=== PATIENT | female | born 1990 | race Caucasian/White ===

== ENCOUNTER 2018-12-05 12:17 | Emergency (ER) | payer MEDICAID ==
[~2018-12-05] VITALS: Ht 154.9 cm; Wt 85.7 kg
[2018-12-05 12:17] VITALS: BP_SYST 156
[2018-12-05] MEDS ORDERED: KETOROLAC TROMETHAMINE 60 MG/2 ML VIAL IM ONE (12:45)
[2018-12-05 13:35] VITALS: BP_SYST 156
== END 2018-12-05 13:35 | disposition home or self-care (01) ==
LOC: SED 12:17
DX: R51 Headache (principal); R03.0 Elevated blood-pressure reading, without diagnosis of hypertension; Z88.8 Allergy status to other drugs, medicaments and biological substances
CPT/HCPCS: 96372; 99283; J1885

== ENCOUNTER 2019-03-31 15:16 | Emergency (ER) | payer MEDICAID ==
[~2019-03-31] VITALS: Ht 154.9 cm; Wt 86.2 kg
[2019-03-31 15:16] VITALS: BP_SYST 144
[2019-03-31 17:17] LABS: BASOPHILS % (AUTO) 0.3 % (0.0-2.0); EOSINOPHILS # (AUTO) 0.1 K/uL (0.0-0.4); EOSINOPHILS % (AUTO) 1.2 % (0.0-4.0); HEMATOCRIT 37.4 % (36-48); HEMOGLOBIN 12.3 g/dL (12.0-16.0); LYMPHOCYTES # (AUTO) 3.5 K/uL (1.0-5.5); LYMPHOCYTES % (AUTO) 28.5 % (20.5-51.5); MEAN CORPUSCULAR HEMOGLOBIN 26 pg (27-31); MEAN CORPUSCULAR HGB CONC 33 % (32-36); MEAN CORPUSCULAR VOLUME 79 fL (79.0-98.0); MONOCYTES # (AUTO) 0.5 K/uL (0.0-1.0); MONOCYTES % (AUTO) 4.3 % (1.7-9.3); NEUTROPHILS % (AUTO) 65.7 % (40.0-70.0); PLATELET COUNT (AUTO) 261 K/uL (130-430); RED BLOOD CELL COUNT(AUTO) 4.77 MIL/uL (4.2-6.2); RED CELL DISTRIBUTION WIDTH 15.5 % (9.0-15.0); WHITE BLOOD COUNT (AUTO) 12.1 K/uL (4.8-10.8)
[2019-03-31 17:22] LABS: CALCIUM 9.1 mg/dL (8.4-11.0); CREATININE 0.61 mg/dL (0.55-1.30); POTASSIUM 3.2 mmol/L (3.5-5.1)
[2019-03-31 17:27] LABS: ALBUMIN 3.8 g/dL (3.4-4.8); TOTAL BILIRUBIN 0.7 mg/dL (0.0-1.0)
[2019-03-31] MEDS ORDERED: cefTRIAXone 250 MG VIAL IM ONE (17:45)
[2019-03-31 18:21] VITALS: BP_SYST 133
[2019-04-03 04:06] LABS: CHLAMYDIA TRACHOMATIS NAA Negative (Negative); NEISSERIA GONORRHOEAE NAA Negative (Negative)
== END 2019-03-31 18:20 | disposition home or self-care (01) ==
LOC: SED 15:16
DX: R10.2 Pelvic and perineal pain (principal); R03.0 Elevated blood-pressure reading, without diagnosis of hypertension; Z88.8 Allergy status to other drugs, medicaments and biological substances
CPT/HCPCS: 36415; 76830; 76857; 80053; 81002; 81025; 85025; 87491; 87591; 96372; 99284; J0696

== ENCOUNTER 2019-04-27 00:05 | Emergency (ER) | payer MEDICAID ==
[~2019-04-27] VITALS: Ht 154.9 cm; Wt 86.2 kg
[2019-04-27 00:28] VITALS: BP_SYST 152
[2019-04-27] MEDS ORDERED: IBUPROFEN 800 MG TABLET PO ONE (01:00)
[2019-04-27 01:26] VITALS: BP_SYST 152
== END 2019-04-27 01:26 | disposition home or self-care (01) ==
LOC: SED 00:05
DX: S93.602A Unspecified sprain of left foot, initial encounter (principal); Z88.8 Allergy status to other drugs, medicaments and biological substances; W01.0XXA Fall on same level from slipping, tripping and stumbling without subsequent striking against object, initial encounter; Y93.89 Activity, other specified; Y92.89 Other specified places as the place of occurrence of the external cause; Y99.8 Other external cause status
CPT/HCPCS: 99283; 99284

== ENCOUNTER 2019-08-30 17:48 | Emergency (ER) | payer MEDICAID ==
[~2019-08-30] VITALS: Ht 157.5 cm; Wt 86.2 kg
[2019-08-30 17:59] VITALS: BP_SYST 136
--- NOTE | 2019-08-30 18:07 | NUR ---
Patient triaged and placed in waiting room. VSS and patient appears in no acute distress at this time. Accompanied by , awaiting available bed, and MD notified of need for MSE.
--- NOTE | 2019-08-30 22:26 | NUR ---
Patient left without being seen. No further treatment provided. ER MD aware
--- NOTE | 2019-08-30 22:26 | NUR ---
Called pt, no answer
== END 2019-08-30 22:26 | disposition left against medical advice (07) ==
LOC: SED 17:48
DX: M54.9 Dorsalgia, unspecified (principal); Z53.21 Procedure and treatment not carried out due to patient leaving prior to being seen by health care provider

== ENCOUNTER 2019-08-31 11:29 | Emergency (ER) | payer MEDICAID ==
[~2019-08-31] VITALS: Ht 152.4 cm; Wt 99.8 kg
[2019-08-31 11:44] VITALS: BP_SYST 142
--- NOTE | 2019-08-31 11:44 | NUR ---
Patient to ER bed 2 to gown for evaluation. Side rails up.
--- NOTE | 2019-08-31 11:45 | NUR ---
Patient is awake, alert, and oriented x4. Patient is complaining of sudden onset lower back pain starting on Thursday morning. Patient presents with lower back stiffness, she has also been on her mestrual period for 2 months.
--- NOTE | 2019-08-31 12:25 | NUR ---
ER Dr. Zuluaga at bedside examining patient.
[2019-08-31 13:00] LABS: BILIRUBIN,URINE NEGATIVE (NEGATIVE); BLOOD, URINE 2+ (NEGATIVE); CLARITY/URINE CLEAR (CLEAR); COLOR,URINE YELLOW (YELLOW); GLUCOSE,URINE NEGATIVE (NEGATIVE); KETONES,URINE TRACE (NEGATIVE); LEUKOCYTE ESTERASE ,URINE NEGATIVE (NEGATIVE); NITRITE, URINE NEGATIVE (NEGATIVE); PH,URINE 6.5 (5.0-8.0); PROTEIN URINE NEGATIVE (NEGATIVE); UROBILINOGEN,URINE 0.2 (0.2-1.0)
[2019-08-31 13:02] LABS: BACTERIA,URINE FEW /HPF (None Seen); RBC,URINE 0-3 /HPF (0-3); WBC,URINE 0-3 /HPF (0-3)
[2019-08-31 13:03] LABS: MUCUS,URINE 1+ /LPF (None Seen)
[2019-08-31 13:32] LABS: BASOPHILS % (AUTO) 0.3 % (0.0-2.0); EOSINOPHILS # (AUTO) 0.1 K/uL (0.0-0.4); EOSINOPHILS % (AUTO) 1.4 % (0.0-4.0); HEMOGLOBIN 12.2 g/dL (12.0-16.0); LYMPHOCYTES # (AUTO) 2.7 K/uL (1.0-5.5); MEAN CORPUSCULAR HEMOGLOBIN 25 pg (27-31); MEAN CORPUSCULAR HGB CONC 33 % (32-36); MEAN CORPUSCULAR VOLUME 76 fL (79.0-98.0); MONOCYTES # (AUTO) 0.4 K/uL (0.0-1.0); MONOCYTES % (AUTO) 4.1 % (1.7-9.3); NEUTROPHILS # (AUTO) 6.7 K/uL (1.8-7.7); NEUTROPHILS % (AUTO) 67.2 % (40.0-70.0); PLATELET COUNT (AUTO) 268 K/uL (130-430); RED BLOOD CELL COUNT(AUTO) 4.84 MIL/uL (4.2-6.2)
[2019-08-31 13:40] VITALS: BP_SYST 119
--- NOTE | 2019-08-31 13:40 | NUR ---
Patient given written and verbal discharge instructions and verbalizes understanding. ER MD discussed with patient the results and treatment provided. Patient in stable condition. ID arm band removed. Rx of premarin, robaxin, motrin given. Patient educated on pain management and to follow up with PMD. Pain Scale 0/10. Opportunity for questions provided and answered. Medication side effect fact sheet provided.
== END 2019-08-31 13:40 | disposition home or self-care (01) ==
LOC: SED 11:29
DX: M54.5 Low back pain (principal); Z88.8 Allergy status to other drugs, medicaments and biological substances
CPT/HCPCS: 36415; 81000-TC; 81025; 85025; 99283

== ENCOUNTER 2019-12-01 19:26 | Emergency (ER) | payer MEDICAID ==
[~2019-12-01] VITALS: Ht 154.9 cm; Wt 83.9 kg
[2019-12-01 19:43] VITALS: BP_SYST 162
--- NOTE | 2019-12-01 19:52 | NUR ---
Patient triaged and placed in waiting room. VSS and patient appears in no acute distress at this time. Awaiting available bed, and MD notified of need for MSE.
--- NOTE | 2019-12-01 20:15 | NUR ---
Patient transported to radiology via wheelchair, accompanied by parking technician.
[2019-12-01 20:39] LABS: BASOPHILS % (AUTO) 0.2 % (0.0-2.0); EOSINOPHILS # (AUTO) 0.1 K/uL (0.0-0.4); HEMATOCRIT 32.4 % (36-48); HEMOGLOBIN 10.3 g/dL (12.0-16.0); LYMPHOCYTES # (AUTO) 2.8 K/uL (1.0-5.5); LYMPHOCYTES % (AUTO) 25.3 % (20.5-51.5); MEAN CORPUSCULAR HEMOGLOBIN 23 pg (27-31); MEAN CORPUSCULAR HGB CONC 32 % (32-36); MEAN CORPUSCULAR VOLUME 73 fL (79.0-98.0); MONOCYTES # (AUTO) 0.5 K/uL (0.0-1.0); MONOCYTES % (AUTO) 4.4 % (1.7-9.3); NEUTROPHILS # (AUTO) 7.8 K/uL (1.8-7.7); NEUTROPHILS % (AUTO) 69.1 % (40.0-70.0); PLATELET COUNT (AUTO) 328 K/uL (130-430); RED BLOOD CELL COUNT(AUTO) 4.43 MIL/uL (4.2-6.2); RED CELL DISTRIBUTION WIDTH 15.3 % (9.0-15.0); WHITE BLOOD COUNT (AUTO) 11.3 K/uL (4.8-10.8)
[2019-12-01 20:40] LABS: CALCIUM 8.7 mg/dL (8.4-11.0); CREATININE 0.64 mg/dL (0.55-1.30); POTASSIUM 3.4 mmol/L (3.5-5.1)
--- NOTE | 2019-12-01 21:05 | NUR ---
Patient to ER bed 7 to gown for evaluation. Side rails up. Report given to CASPER Prather.
--- NOTE | 2019-12-01 21:06 | NUR ---
Patient is awake, alert, and oriented x4. Patient came from home for evaluation. Patient reports she was recently diagnosed with an ectopic and that she is at 8 weeks gestation. Patient is complaining of abdominal pain that radiates to her lower back and hips. She states she also has had vaginal bleeding since May.
--- NOTE | 2019-12-01 21:07 | NUR ---
ER Dr. Rodney at bedside examining patient.
[2019-12-01] MEDS: KETOROLAC TROMETHAMINE 15 MG VIAL IM ONE (22:24)
--- NOTE | 2019-12-01 22:30 | NUR ---
Patient given written and verbal discharge instructions and verbalizes understanding. ER MD discussed with patient the results and treatment provided. Patient in stable condition. ID arm band removed. Rx of motrin given. Patient educated on pain management and to follow up with PMD. Pain Scale 3/10. Opportunity for questions provided and answered. Medication side effect fact sheet provided.
[2019-12-01 22:31] VITALS: BP_SYST 158
== END 2019-12-01 22:30 | disposition home or self-care (01) ==
LOC: SED 19:26
DX: O46.8X1 Other antepartum hemorrhage, first trimester (principal); O26.891 Other specified pregnancy related conditions, first trimester; R10.2 Pelvic and perineal pain; O34.11 Maternal care for benign tumor of corpus uteri, first trimester; Z88.6 Allergy status to analgesic agent; Z3A.01 Less than 8 weeks gestation of pregnancy
CPT/HCPCS: 36415; 76830; 76857; 80048; 84702; 85025; 86886; 86900; 86901; 99284; J1885

== ENCOUNTER 2021-04-15 22:08 | Emergency (ER) | payer MEDICAID, SELFPAY ==
[~2021-04-15] VITALS: Ht 154.9 cm; Wt 86.2 kg
[2021-04-15 22:55] VITALS: BP_SYST 152
--- NOTE | 2021-04-16 | NUR ---
Called pt name in the wr.No response.
--- NOTE | 2021-04-16 00:05 | NUR ---
Called pt name in the wr.No response.
--- NOTE | 2021-04-16 00:10 | NUR ---
Called pt name in the wr.No response.
== END 2021-04-16 00:10 | disposition left against medical advice (07) ==
LOC: SED 22:08
DX: I10 Essential (primary) hypertension (principal); Z79.899 Other long term (current) drug therapy

== ENCOUNTER 2023-05-10 15:53 | Emergency (ER) | payer MEDICAID ==
[~2023-05-10] VITALS: Ht 157.5 cm; Wt 83.9 kg
[2023-05-10 16:09] VITALS: BP_SYST 122; PULSE 89; RESP 18; TEMP 98.3; O2SAT 100
== END 2023-05-10 16:50 | disposition left against medical advice (07) ==
LOC: SED 15:53
DX: H92.02 Otalgia, left ear (principal); R05.9 Cough, unspecified; R09.81 Nasal congestion; Z53.21 Procedure and treatment not carried out due to patient leaving prior to being seen by health care provider
CPT/HCPCS: 99281